=== PATIENT | female | born 1940 | race Caucasian/White ===

== ENCOUNTER 2019-03-03 18:01 | Emergency (ER) | payer MEDICARE, MEDICAID ==
[~2019-03-03] VITALS: Ht 154.9 cm; Wt 64.0 kg
[~2019-03-03 18:01] MED LIST: FLUD0.1T; HYDR20TA23; LEVO125T8 MT; OMEP20TA2
[2019-03-03] MEDS ORDERED: KETOROLAC 30MG/ML VIAL IV STA (19:15)
[2019-03-03] MEDS ORDERED: SODIUM CHLORIDE 0.9% 1000ML BAG (SEPSIS BOLUS) IV ONE (19:15)
[2019-03-03] MEDS ORDERED: ONDANSETRON HCL 4MG/2ML INJ IV STA (19:15)
[2019-03-03] MEDS ORDERED: ACETAMINOPHEN 325MG TABLET PO STA (19:15)
[2019-03-03 19:55] LABS: BASOPHILS % 0.3 % (0.0-2.0); EOSINOPHILS % 0.5 % (0.0-5.0); HEMATOCRIT. 44.6 % (36.0-48.0); LYMPHOCYTES % 7.9 % (20.0-50.0); MEAN CORPUSCULAR HEMOGLOBIN 32.9 pg (28.0-32.0); MEAN CORPUSCULAR VOLUME 97.7 fL (81.0-99.0); MEAN PLATELET VOLUME 9.8 fl (7.4-10.4); MONOCYTES % 11.6 % (2.0-8.0); NEUTROPHILS % 79.7 % (40.0-76.0); PLATELET 185 x1000/uL (130-400); RED BLOOD CELL COUNT 4.57 mill/uL (4.2-5.4); RED CELL DISTRIBUTION WIDTH 14.6 % (11.6-14.6)
[2019-03-03 19:59] LABS: CHLORIDE 108 mEq/L (98-107)
[2019-03-03 20:02] LABS: INR 1.1; PROTHROMBIN TIME 11.5 sec (9.6-11.0)
[2019-03-03 20:33] LABS: CLARITY URINE CLEAR (CLEAR); COLOR URINE YELLOW (YELLOW); KETONES URINE 1+ (NEGATIVE); LEUKOCYTE ESTERASE URINE 2+ (NEGATIVE); NITRITE URINE NEGATIVE (NEGATIVE); OCCULT BLOOD URINE 2+ (NEGATIVE); PROTEIN URINE 1+ (NEGATIVE); SPECIFIC GRAVITY URINE 1.023 (1.005-1.030)
[2019-03-03] MEDS ORDERED: CEFTRIAXONE 1 G PREMIX 50 ML IV ONE (22:15)
[2019-03-03 23:10] VITALS: BP 121/59
== END 2019-03-03 23:20 | disposition home or self-care (01) ==
LOC: ER 18:01 → CANBEDREQ 03-04 01:26
DX: N39.0 Urinary tract infection, site not specified (principal); K57.92 Diverticulitis of intestine, part unspecified, without perforation or abscess without bleeding; K52.9 Noninfective gastroenteritis and colitis, unspecified; R00.0 Tachycardia, unspecified; D72.829 Elevated white blood cell count, unspecified; E03.9 Hypothyroidism, unspecified; Z90.710 Acquired absence of both cervix and uterus; Z98.890 Other specified postprocedural states; Z79.899 Other long term (current) drug therapy
CPT/HCPCS: 36415; 71045; 74176; 80053; 81003; 83605; 84145; 84484; 85025; 85610; 87040; 87086; 93005; 96361; 96365; 96375; 99284; J0696; J1885; J2405; J7030

== ENCOUNTER 2021-04-30 17:27 | Inpatient (IN) | payer MEDICARE, MEDICAID ==
[~2021-04-30] VITALS: Ht 160 cm; Wt 45.8 kg
[~2021-04-30 17:27] MED LIST changes: -HYDR20TA23; +HYDR20TA24
[2021-04-30] MEDS ORDERED: ONDANSETRON HCL 4MG/2ML INJ IV STA (17:51)
[2021-04-30 19:34] LABS: CHLORIDE 110 mEq/L (98-107)
[2021-04-30 20:45] LABS: BASOPHILS % 0.4 % (0.0-2.0); EOSINOPHILS % 1.1 % (0.0-5.0); HEMATOCRIT. 43.1 % (36.0-48.0); HEMOGLOBIN. 14.3 g/dL (12.0-16.0); LYMPHOCYTES % 16.5 % (20.0-50.0); MEAN CORPUSCULAR HEMOGLOBIN 32.8 pg (28.0-32.0); MEAN PLATELET VOLUME 9.7 fl (7.4-10.4); MONOCYTES % 7.4 % (2.0-8.0); NEUTROPHILS % 74.6 % (40.0-76.0); PLATELET 213 x1000/uL (130-400); RED BLOOD CELL COUNT 4.35 mill/uL (4.2-5.4); RED CELL DISTRIBUTION WIDTH 14.6 % (11.6-14.6)
[2021-04-30 20:54] LABS: PROTHROMBIN TIME 10.7 sec (9.6-11.0)
[2021-05-01] MEDS ORDERED: IOHEXOL-300 100 ML BOTTLE ONE (00:38)
[2021-05-01 00:58] LABS: CLARITY URINE CLEAR (CLEAR); COLOR URINE YELLOW (YELLOW); KETONES URINE NEGATIVE (NEGATIVE); LEUKOCYTE ESTERASE URINE 2+ (NEGATIVE); NITRITE URINE POSITIVE (NEGATIVE); OCCULT BLOOD URINE TRACE (NEGATIVE); PROTEIN URINE NEGATIVE (NEGATIVE); SPECIFIC GRAVITY URINE 1.023 (1.005-1.030); UROBILINOGEN URINE 0.2 E.U./dL (0.2-1.0)
[2021-05-01] MEDS ORDERED: CEFTRIAXONE 1 G PREMIX 50 ML IV ONE (01:00)
[2021-05-01] MEDS ORDERED: METRONIDAZOLE 500 MG PREMIX 100 ML IV ONE (01:00)
[2021-05-01 10:04] VITALS: BP 131/59
[2021-05-01] MEDS ORDERED: DOCUSATE SODIUM 100MG CAPSULE PO PRN (11:30)
[2021-05-01] MEDS ORDERED: CLONIDINE 0.1MG TABLET PO PRN (11:30)
[2021-05-01] MEDS ORDERED: HYDROCODONE/ACETAMINOPHEN 5/325MG TABLET PO PRN (11:30)
[2021-05-01] MEDS ORDERED: MAGNESIUM/ALUMINUM HYDROXIDE/SIMETHICONE 30ML UDC PO PRN (11:30)
[2021-05-01] MEDS ORDERED: IPRATROPIUM/ALBUTEROL 0.5-3(2.5)MG/3ML NEB HHN PRN (11:30)
[2021-05-01] MEDS ORDERED: ONDANSETRON HCL 4MG/2ML INJ IV PRN (11:30)
[2021-05-01] MEDS: ENOXAPARIN 40MG/0.4ML SYR SUBCUT SCH (12:00)
[2021-05-01] MEDS: LEVOTHYROXINE SODIUM 125MCG TABLET PO SCH (12:23)
[2021-05-01] MEDS: ACETAMINOPHEN 325MG TABLET PO PRN (12:23)
[2021-05-01] MEDS ORDERED: *PATIENT'S OWN MEDICATION STORAGE XX SCH (14:00)
[2021-05-01] MEDS ORDERED: PNEUMOCOCCAL 23-VAL P-SAC VAC 0.5 ML IM ONE (14:00)
[2021-05-01] MEDS ORDERED: INFLUENZA VACCINE 05/PF 0.5 ML SYRINGE IM ONE (14:00)
[2021-05-01] MEDS ORDERED: HYDROCORTISONE 10MG TABLET PO SCH ×2 (18:45→21:00)
[2021-05-01 20:00] VITALS: BP 120/60
[2021-05-02] VITALS (8 sets, daily range): BP systolic 104–131; BP diastolic 54–75
[2021-05-02] MEDS ORDERED: CEFTRIAXONE 1,000 MG in DEXTROSE 5% WATER 50 ML IV SCH (02:00)
[2021-05-02 07:14] LABS: BASOPHILS % 0.8 % (0.0-2.0); EOSINOPHILS % 1.8 % (0.0-5.0); HEMATOCRIT. 44.9 % (36.0-48.0); HEMOGLOBIN. 14.8 g/dL (12.0-16.0); LYMPHOCYTES % 18.3 % (20.0-50.0); MEAN CORPUSCULAR HEMOGLOBIN 32.4 pg (28.0-32.0); MEAN CORPUSCULAR VOLUME 98.1 fL (81.0-99.0); MEAN PLATELET VOLUME 9.7 fl (7.4-10.4); MONOCYTES % 7.2 % (2.0-8.0); NEUTROPHILS % 71.9 % (40.0-76.0); PLATELET 229 x1000/uL (130-400); RED BLOOD CELL COUNT 4.58 mill/uL (4.2-5.4); RED CELL DISTRIBUTION WIDTH 14.6 % (11.6-14.6)
[2021-05-02] MEDS ORDERED: OMEPRAZOLE 20MG CAPSULE EXTENDED RELEASE PO SCH (07:20)
[2021-05-02 07:42] LABS: CHLORIDE 104 mEq/L (98-107)
[2021-05-02 07:57] LABS: AMYLASE 138 IU/L (25-115)
[2021-05-02 07:58] LABS: PHOSPHORUS 3.3 mg/dL (2.5-4.9)
[2021-05-02 08:43] LABS: *AMPHETAMINES SCREEN URINE NEGATIVE (NEGATIVE); *BARBITURATES SCREEN URINE NEGATIVE (NEGATIVE)
[2021-05-02 08:44] LABS: *BENZODIAZEPINES SCREEN URINE NEGATIVE (NEGATIVE); *COCAINE SCREEN URINE NEGATIVE (NEGATIVE); CANNABINOID URINE SCREEN NEGATIVE (NEGATIVE); METHADONE URINE SCREEN NEGATIVE (NEGATIVE); OPIATES URINE SCREEN NEGATIVE (NEGATIVE); PHENCYCLIDINE URINE SCREEN NEGATIVE (NEGATIVE)
[2021-05-02] MEDS ORDERED: FLUDROCORTISONE ACETATE 0.1MG TABLET PO SCH (09:00)
[2021-05-02] MEDS ORDERED: HYDROCORTISONE 10MG TABLET PO SCH (09:00)
[2021-05-02] MEDS: LEVOTHYROXINE SODIUM 125MCG TABLET PO SCH (09:11)
[2021-05-02] MEDS: ACETAMINOPHEN 325MG TABLET PO PRN (09:30)
[2021-05-02] MEDS: ENOXAPARIN 40MG/0.4ML SYR SUBCUT SCH (11:51)
[2021-05-02] MEDS ORDERED: SULF1TAB47 MT (13:49)
[2021-05-03] MEDS ORDERED: ENOXAPARIN 30MG/0.3ML SYR SUBCUT SCH (11:00)
== END 2021-05-02 17:44 | disposition home or self-care (01) | DRG 690 ==
LOC: ER 17:27 → MICUSO 05-01 05:22 → EDBEDREQTM 05-01 05:25 → EDBEDREQ 05-01 05:25 → MICUSO 05-01 09:57 → 6EST 05-01 11:08
PROVIDERS: ADMIT Internal Medicine; ATTEND Internal Medicine
DX: N39.0 Urinary tract infection, site not specified (principal); E03.9 Hypothyroidism, unspecified; R10.13 Epigastric pain; R11.2 Nausea with vomiting, unspecified; K21.9 Gastro-esophageal reflux disease without esophagitis; Z90.710 Acquired absence of both cervix and uterus
CPT/HCPCS: 36415; 71045; 74177; 80048; 80053; 80076; 80305; 81003; 82150; 83735; 84100; 84484; 85025; 90686; 90732; 93005; 93970; 97161; 99285; J0696; J1650; J2405; J3490; J7040; J7060; Q9967

== ENCOUNTER 2021-06-27 06:34 | Emergency (ER) | payer MEDICARE, MEDICAID ==
[~2021-06-27] VITALS: Ht 142.2 cm; Wt 60.0 kg
[~2021-06-27 06:34] MED LIST changes: +SULF1TAB47 MT
[2021-06-27] MEDS ORDERED: ACETAMINOPHEN 325MG TABLET PO STA (07:41)
[2021-06-27 09:20] LABS: BASOPHILS % 0.6 % (0.0-2.0); EOSINOPHILS % 2.2 % (0.0-5.0); HEMATOCRIT. 43.4 % (36.0-48.0); HEMOGLOBIN. 14.7 g/dL (12.0-16.0); LYMPHOCYTES % 29.1 % (20.0-50.0); MEAN CORPUSCULAR HEMOGLOBIN 32.9 pg (28.0-32.0); MEAN CORPUSCULAR VOLUME 97.1 fL (81.0-99.0); MEAN PLATELET VOLUME 9.8 fl (7.4-10.4); MONOCYTES % 9.1 % (2.0-8.0); PLATELET 228 x1000/uL (130-400); RED BLOOD CELL COUNT 4.46 mill/uL (4.2-5.4); RED CELL DISTRIBUTION WIDTH 14.3 % (11.6-14.6)
[2021-06-27 09:31] LABS: CHLORIDE 111 mEq/L (98-107)
[2021-06-27 10:40] VITALS: BP 157/73
== END 2021-06-27 10:42 | disposition home or self-care (01) ==
LOC: ER 06:34
DX: I10 Essential (primary) hypertension (principal); G89.29 Other chronic pain; M25.561 Pain in right knee; F19.10 Other psychoactive substance abuse, uncomplicated; E78.5 Hyperlipidemia, unspecified; Z79.899 Other long term (current) drug therapy
CPT/HCPCS: 36415; 80053; 84484; 85025; 93005; 99284; 99285

== ENCOUNTER 2023-07-25 10:31 | Emergency (ER) | payer BC, MEDICAID, MEDICARE ==
[~2023-07-25] VITALS: Ht 152.4 cm; Wt 61.0 kg
[~2023-07-25 10:31] MED LIST changes: -OMEP20TA2; +OMEP20TA23
[2023-07-25 10:33] VITALS: BP 105/59; PULSE 105; RESP 18; TEMP 98.4; O2SAT 98
[2023-07-25 11:48] LABS: HEMATOCRIT. 40.8 % (36.0-48.0); HEMOGLOBIN. 13.7 g/dL (12.0-16.0); MEAN CORPUSCULAR HEMOGLOBIN 32.3 pg (28.0-32.0); MEAN CORPUSCULAR HGB CONC 33.6 g/dL (31.0-37.0); MEAN CORPUSCULAR VOLUME 96.4 fL (81.0-99.0); MEAN PLATELET VOLUME 9.3 fl (7.4-10.4); PLATELET 221 x1000/uL (130-400); RED BLOOD CELL COUNT 4.23 mill/uL (4.2-5.4); RED CELL DISTRIBUTION WIDTH 14.6 % (11.6-14.6); WHITE BLOOD COUNT 10.8 x1000/uL (4.5-11.0)
[2023-07-25 11:53] LABS: CLARITY URINE CLEAR (CLEAR); COLOR URINE YELLOW (YELLOW); GLUCOSE URINE NEGATIVE (NEGATIVE); KETONES URINE 1+ (NEGATIVE); LEUKOCYTE ESTERASE URINE 1+ (NEGATIVE); NITRITE URINE POSITIVE (NEGATIVE); OCCULT BLOOD URINE 2+ (NEGATIVE); PH URINE 5.5 (4.5-8.0); PROTEIN URINE NEGATIVE (NEGATIVE); SPECIFIC GRAVITY URINE 1.016 (1.005-1.030)
[2023-07-25 11:55] LABS: DIFFERENTIAL COMMENT 1
[2023-07-25 12:18] LABS: BACTERIA URINE 4+; RBC URINE 0-2 /hpf (0-2); SQUAMOUS EPITHELIAL CELL URINE RARE /lpf (RARE/1+); WBC URINE 25-50 /hpf (0-2); YEAST URINE NONE SEEN
[2023-07-25] MEDS ORDERED: CEFP200T13 MT ×3 (12:22→13:15)
[2023-07-25 12:57] LABS: ALANINE AMINOTRANSFERASE 18 IU/L (10-49); ALBUMIN 4.1 g/dL (3.2-4.8); BILIRUBIN TOTAL 0.9 mg/dL (0.1-1.0); CALCIUM 9.3 mg/dL (8.7-10.4); CARBON DIOXIDE 25 mEq/L (21-32); CHLORIDE 105 mEq/L (98-107); CREATININE 0.8 mg/dL (0.6-1.0); GLUCOSE 116 mg/dL (70-105); POTASSIUM 3.6 mEq/L (3.5-5.1); PROTEIN TOTAL 6.6 g/dL (6.0-8.3); SODIUM 137 mEq/L (136-145); TROPONIN I HIGH SENSITIVITY 6 ng/L (3.0-34); UREA NITROGEN BLOOD 15 mg/dL (9-23)
[2023-07-25 13:32] LABS: ASPARTATE AMINOTRANSFERASE 37 IU/L (<34)
[2023-07-25 15:34] LABS: PLATELET ESTIMATE NORMAL
== END 2023-07-25 13:18 | disposition home or self-care (01) ==
LOC: ER 10:36
DX: N39.0 Urinary tract infection, site not specified (principal); I10 Essential (primary) hypertension; Z98.890 Other specified postprocedural states
CPT/HCPCS: 36415; 80053; 81003; 84484; 85025; 87077; 87186; 93005; 99284

== ENCOUNTER 2024-07-10 01:11 | Emergency (ER) | payer MEDICARE ==
[~2024-07-10] VITALS: Ht 157.5 cm; Wt 54.3 kg
[~2024-07-10 01:11] MED LIST changes: +CEFP200T13 MT
[2024-07-10 01:32] VITALS: O2SAT 98
[2024-07-10] MEDS: ACETAMINOPHEN 500MG TABLET PO ONE (01:45)
[2024-07-10 02:26] LABS: CHLORIDE 108 mEq/L (98-107); POTASSIUM 4.4 mEq/L (3.5-5.1); SODIUM 142 mEq/L (136-145)
[2024-07-10 02:27] LABS: CARBON DIOXIDE 27 mEq/L (21-32)
[2024-07-10 02:28] LABS: CALCIUM 10.4 mg/dL (8.7-10.4)
[2024-07-10 02:32] LABS: CREATININE 0.8 mg/dL (0.6-1.0); GLUCOSE 99 mg/dL (70-105); UREA NITROGEN BLOOD 17 mg/dL (9-23)
[2024-07-10 02:34] LABS: ALANINE AMINOTRANSFERASE 16 IU/L (10-49); ALBUMIN 4.6 g/dL (3.2-4.8); ASPARTATE AMINOTRANSFERASE 19 IU/L (<34)
[2024-07-10 02:35] LABS: BILIRUBIN TOTAL 0.6 mg/dL (0.1-1.0); PROTEIN TOTAL 7.6 g/dL (6.0-8.3)
[2024-07-10 02:36] LABS: THYROID STIMULATING HORMONE 9.33 uIU/mL (0.55-4.78)
[2024-07-10 02:39] LABS: TROPONIN I HIGH SENSITIVITY < 4 ng/L (3.0-34)
[2024-07-10] MEDS: HYDRALAZINE HCL 50MG TABLET PO ONE (02:45)
[2024-07-10 03:08] LABS: BASOPHILS % 0.9 % (0.0-2.0); EOSINOPHILS % 1.9 % (0.0-5.0); HEMATOCRIT. 44.5 % (36.0-48.0); HEMOGLOBIN. 14.7 g/dL (12.0-16.0); LYMPHOCYTES % 17.9 % (20.0-50.0); MEAN CORPUSCULAR HEMOGLOBIN 32.7 pg (28.0-32.0); MEAN CORPUSCULAR HGB CONC 33.1 g/dL (31.0-37.0); MEAN CORPUSCULAR VOLUME 98.7 fL (81.0-99.0); MONOCYTES % 7.5 % (2.0-8.0); NEUTROPHILS % 71.8 % (40.0-76.0); PLATELET 235 x1000/uL (130-400); RED BLOOD CELL COUNT 4.51 mill/uL (4.2-5.4); RED CELL DISTRIBUTION WIDTH 15.1 % (11.6-14.6); WHITE BLOOD COUNT 9.4 x1000/uL (4.5-11.0)
[2024-07-10] MEDS: ACETAMINOPHEN 500MG TABLET PO NR (04:12)
[2024-07-10] MEDS: HYDRALAZINE HCL 25MG TABLET PO NR (04:13)
[2024-07-10 04:21] VITALS: BP 146/72; PULSE 72; RESP 17; TEMP 36.83628; O2SAT 98
== END 2024-07-10 04:23 | disposition home or self-care (01) ==
LOC: ER 01:11
DX: I10 Essential (primary) hypertension (principal); R07.89 Other chest pain; Z79.899 Other long term (current) drug therapy
CPT/HCPCS: 36415; 71045; 80053; 83880; 84439; 84443; 84484; 85025; 93005; 99285

== ENCOUNTER 2025-01-26 17:26 | Emergency (ER) | payer MEDICARE ==
[~2025-01-26] VITALS: Ht 152.4 cm; Wt 58.0 kg
[2025-01-26 17:29] VITALS: O2SAT 98
[2025-01-26] MEDS: METOCLOPRAMIDE HCL 10MG TABLET PO ONE (22:50)
[2025-01-26] MEDS: ACETAMINOPHEN 325MG TABLET PO ONE (22:50)
[2025-01-26 23:28] LABS: BASOPHILS % 0.9 % (0.0-2.0); EOSINOPHILS % 1.1 % (0.0-5.0); HEMATOCRIT. 39.5 % (36.0-48.0); HEMOGLOBIN. 13.4 g/dL (12.0-16.0); LYMPHOCYTES % 15.7 % (20.0-50.0); MEAN PLATELET VOLUME 9.0 fl (7.4-10.4); MONOCYTES % 5.3 % (2.0-8.0); NEUTROPHILS % 77.0 % (40.0-76.0); PLATELET 312 x1000/uL (130-400); RED BLOOD CELL COUNT 4.14 mill/uL (4.2-5.4); RED CELL DISTRIBUTION WIDTH 14.5 % (11.6-14.6)
[2025-01-26 23:41] LABS: CREATININE 0.9 mg/dL (0.6-1.0); UREA NITROGEN BLOOD 24 mg/dL (9-23)
[2025-01-26 23:43] LABS: ASPARTATE AMINOTRANSFERASE 15 IU/L (<34); BILIRUBIN DIRECT 0.1 mg/dL (<=3.0); BILIRUBIN TOTAL 0.6 mg/dL (0.1-1.0); PROTEIN TOTAL 7.9 g/dL (6.0-8.3); TROPONIN I HIGH SENSITIVITY < 4 ng/L (3.0-34)
[2025-01-27 00:09] VITALS: BP 159/69; PULSE 62; RESP 18; TEMP 37; O2SAT 99
== END 2025-01-27 01:14 | disposition home or self-care (01) ==
LOC: ER 17:26
DX: I10 Essential (primary) hypertension (principal); R51.9 Headache, unspecified; R06.02 Shortness of breath; E03.9 Hypothyroidism, unspecified; Z79.890 Hormone replacement therapy; Z79.899 Other long term (current) drug therapy
CPT/HCPCS: 99285; 70450; 71045; 80076; 80048; 83880; 85025; 84484; 36415; 93005; J8597